=== PATIENT | male | born 1970 | race Caucasian/White ===

== ENCOUNTER 2018-03-30 09:43 | Emergency (ER) | payer MEDICAID, SELFPAY ==
[2018-03-30 10:02] VITALS: BP 168/103; PULSE 76; RESP 20; TEMP 36.2
--- NOTE | 2018-03-30 10:23 | W.ED.GENAD ---
Discharge Plan Disposition Patient Disposition: HOME Discharge Details Chief Complaint: DentalOral Clinical Impression: Dental infection Primary Care Provider: Mayito Sherman ED Provider: Terry Fernandez Home Meds and New Rx's Prescriptions: New penicillin V potassium 500 mg tablet 500 mg PO QID Qty: 28 RF: 0 Continued buprenorphine-naloxone 1 EACH tablet, sublingual 16 mg Sublingual DAILY RF: 0 ibuprofen 800 MG tablet 800 mg PO TID PRN PRNQty: 30 RF: 0 dexmethylphenidate [Focalin] 10 mg Tablet 20 mg PO BID RF: 0 Discharge Instructions Instructions: Dental Abscess (ED) Additional Instructions: Please take full course of antibiotic as prescribed. Please follow-up with a dentist as soon as possible. Call for an appointment. See referral list provided. Please follow-up with your primary care physician and return to the ER should you have any worsening or new concerning symptoms. Referrals: Mayito Sherman [Primary Care Provider] - Medical Decision Making 47-year-old male with poor dentition, recent methamphetamine use, here with right lower molar dental pain. No abscess amenable to incision and drainage on palpation or visualization. Plan to treat with penicillin and have him follow-up with dentist. HPI General Mode of arrival: ambulatory. Date/Time Provider Initiated Documentation: 03/30/18 10:04. Limitations to Documentation: no limitations. Information obtained by: patient. HPI Narrative: 47-year-old male with poor dentition here with right lower molar dental pain that started 2 days ago and has persisted. Pain is moderate. Feels like he has a dental infection which has had in the past. Denies associated facial swelling. No fevers. Related Data Home Medications Medication Instructions Recorded Confirmed buprenorphine-naloxone 16 mg SUBLINGUAL DAILY 10/22/14 03/30/18 ibuprofen 800 mg PO TID PRN PRN #30 tablet 11/24/16 03/30/18 dexmethylphenidate [Focalin] 20 mg PO BID 03/30/18 03/30/18 penicillin V potassium 500 mg PO QID #28 tab 03/30/18 Previous Rx's Medication Instructions Recorded ibuprofen 800 mg PO TID PRN PRN #30 tablet 11/24/16 penicillin V potassium 500 mg PO QID #28 tab 03/30/18 Allergies Allergy/AdvReac Type Severity Reaction Status Date / Time amphetamine aspartate Allergy Mild Skin Rash Unverified 03/30/18 10:05 [From Adderall] amphetamine sulfate Allergy Mild Skin Rash Unverified 03/30/18 10:05 [From Adderall] dextroamphetamine saccharate Allergy Mild Skin Rash Unverified 03/30/18 10:05 [From Adderall] dextroamphetamine sulfate Allergy Mild Skin Rash Unverified 03/30/18 10:05 [From Adderall] methylphenidate HCl Allergy Mild Skin Rash Unverified 03/30/18 10:05 [From Ritalin] Serotonin 5HT-3 Antagonists AdvReac Headache Unverified 03/30/18 10:05 General Stated Complaint: DentalOral DIANA: 4 Review of Systems Constitutional Denies fever(s) and Denies headache(s) ENT Reports as per HPI, Reports dental pain, Denies headache(s), Denies neck pain, Denies sinus pain, Denies sinus pressure and Denies sore throat Musculoskeletal Denies neck pain Neurologic Denies headache(s) PFSH Social History Smoking/Tobacco Use Status: Current every day Exam Const General: cooperative and no acute distress HENMT Head: normocephalic and atraumatic Face and sinus: normal facial exam and sinuses nontender Mouth: moist mucous membranes Teeth and gingiva: caries, poor dentition and other (Tender right molar and adjacent gumline with no fluctuance or's) Throat: posterior oropharynx normal, tonsils normal and uvula midline Eyes Conjunctivae: normal conjunctivae Sclera: normal sclerae EOM: EOM intact bilaterally Neck Neck: no lymphadenopathy, trachea midline and supple Resp Auscultation: clear to auscultation bilaterally, no rales, no rhonchi and no wheezes Cardio Jugular venous pressure: no JVD Rate: regular rate and not tachycardic Rhythm: regular rhythm Skin Rashes: rashes noted (Dry shallow healing ulcerations hand that patient notes is related to prior) Neuro General: alert, awake, oriented x3 and tone normal Psych Mental Status: mental status grossly normal Affect: anxious affect Course Vital Signs Temperature 36.2 C L 03/30/18 10:02 Pulse 76 03/30/18 10:02 Respiratory Rate 20 03/30/18 10:02 Blood Pressure 168/103 H 03/30/18 10:02 Temperature 36.2 C L 03/30/18 10:02 Temperature Source Temporal Artery Scan 03/30/18 10:02 Pulse 76 03/30/18 10:02 Respiratory Rate 20 03/30/18 10:02 Respiratory Effort Non-Labored 03/30/18 10:02 Blood Pressure 168/103 H 03/30/18 10:02 Blood Pressure Position Sitting 03/30/18 10:02 Oxygen Delivery Method Room Air 03/30/18 10:02 Oxygen Flow Rate 0 03/30/18 10:02 Pain Level 3 03/30/18 10:02
--- NOTE | 2018-03-30 10:32 | ED.GENADUL_ITS ---
Discharge Plan Disposition Patient Disposition: HOME Discharge Details Chief Complaint: DentalOral Clinical Impression: Dental infection Primary Care Provider: Mayito Sherman ED Provider: Terry Fernandez Home Meds and New Rx's Prescriptions: New penicillin V potassium 500 mg tablet 500 mg PO QID Qty: 28 RF: 0 Continued buprenorphine-naloxone 1 EACH tablet, sublingual 16 mg Sublingual DAILY RF: 0 ibuprofen 800 MG tablet 800 mg PO TID PRN PRNQty: 30 RF: 0 dexmethylphenidate [Focalin] 10 mg Tablet 20 mg PO BID RF: 0 Discharge Instructions Instructions: Dental Abscess (ED) Additional Instructions: Please take full course of antibiotic as prescribed. Please follow-up with a dentist as soon as possible. Call for an appointment. See referral list provided. Please follow-up with your primary care physician and return to the ER should you have any worsening or new concerning symptoms. Referrals: Mayito Sherman [Primary Care Provider] - Medical Decision Making 47-year-old male with poor dentition, recent methamphetamine use, here with right lower molar dental pain. No abscess amenable to incision and drainage on palpation or visualization. Plan to treat with penicillin and have him follow- up with dentist. HPI General Mode of arrival: ambulatory . Date/Time Provider Initiated Documentation: 03/30/18 10:04 . Limitations to Documentation: no limitations . Information obtained by: patient . HPI Narrative: 47-year-old male with poor dentition here with right lower molar dental pain that started 2 days ago and has persisted. Pain is moderate. Feels like he has a dental infection which has had in the past. Denies associated facial swelling. No fevers. Related Data Home Medications Medication Instructions Recorded Confirmed buprenorphine-naloxone 16 mg SUBLINGUAL DAILY 10/22/14 03/30/18 ibuprofen 800 mg PO TID PRN PRN #30 tablet 11/24/16 03/30/18 dexmethylphenidate [Focalin] 20 mg PO BID 03/30/18 03/30/18 penicillin V potassium 500 mg PO QID #28 tab 03/30/18 Previous Rx's Medication Instructions Recorded ibuprofen 800 mg PO TID PRN PRN #30 tablet 11/24/16 penicillin V potassium 500 mg PO QID #28 tab 03/30/18 Allergies Allergy/AdvReac Type Severity Reaction Status Date / Time amphetamine aspartate Allergy Mild Skin Rash Unverified 03/30/18 10:05 [From Adderall] amphetamine sulfate Allergy Mild Skin Rash Unverified 03/30/18 10:05 [From Adderall] dextroamphetamine saccharate Allergy Mild Skin Rash Unverified 03/30/18 10:05 [From Adderall] dextroamphetamine sulfate Allergy Mild Skin Rash Unverified 03/30/18 10:05 [From Adderall] methylphenidate HCl Allergy Mild Skin Rash Unverified 03/30/18 10:05 [From Ritalin] Serotonin 5HT-3 Antagonists AdvReac Headache Unverified 03/30/18 10:05 General Stated Complaint: DentalOral DIANA: 4 Review of Systems Constitutional Denies fever(s) and Denies headache(s) ENT Reports as per HPI, Reports dental pain, Denies headache(s), Denies neck pain, Denies sinus pain, Denies sinus pressure and Denies sore throat Musculoskeletal Denies neck pain Neurologic Denies headache(s) PFSH Social History Smoking/Tobacco Use Status: Current every day Exam Const General: cooperative and no acute distress HENMT Head: normocephalic and atraumatic Face and sinus: normal facial exam and sinuses nontender Mouth: moist mucous membranes Teeth and gingiva: caries, poor dentition and other (Tender right molar and adjacent gumline with no fluctuance or's) Throat: posterior oropharynx normal, tonsils normal and uvula midline Eyes Conjunctivae: normal conjunctivae Sclera: normal sclerae EOM: EOM intact bilaterally Neck Neck: no lymphadenopathy, trachea midline and supple Resp Auscultation: clear to auscultation bilaterally, no rales, no rhonchi and no wheezes Cardio Jugular venous pressure: no JVD Rate: regular rate and not tachycardic Rhythm: regular rhythm Skin Rashes: rashes noted (Dry shallow healing ulcerations hand that patient notes is related to prior) Neuro General: alert, awake, oriented x3 and tone normal Psych Mental Status: mental status grossly normal Affect: anxious affect Course Vital Signs Temperature 36.2 C L 03/30/18 10:02 Pulse 76 03/30/18 10:02 Respiratory Rate 20 03/30/18 10:02 Blood Pressure 168/103 H 03/30/18 10:02 Temperature 36.2 C L 03/30/18 10:02 Temperature Source Temporal Artery Scan 03/30/18 10:02 Pulse 76 03/30/18 10:02 Respiratory Rate 20 03/30/18 10:02 Respiratory Effort Non-Labored 03/30/18 10:02 Blood Pressure 168/103 H 03/30/18 10:02 Blood Pressure Position Sitting 03/30/18 10:02 Oxygen Delivery Method Room Air 03/30/18 10:02 Oxygen Flow Rate 0 03/30/18 10:02 Pain Level 3 03/30/18 10:02
[2018-03-30 13:38] VITALS: BP 168/103; PULSE 76; RESP 20; TEMP 36.2
== END 2018-03-30 10:45 | disposition home or self-care (01) ==
PROVIDERS: Emergency Provider Student in an Organized Health Care Education/Training Program; PCP Internal Medicine Sleep Medicine
DX: R68.84 Jaw pain (principal); K04.7 Periapical abscess without sinus; F15.99 Other stimulant use, unspecified with unspecified stimulant-induced disorder
CPT/HCPCS: 99283

== ENCOUNTER 2018-09-16 08:22 | Emergency (ER) | payer MEDICAID, SELFPAY ==
[2018-09-16] VITALS (39 sets, daily range): BP systolic 101–152; BP diastolic 61–97; PULSE 73–95; RESP 8–19; TEMP 36.5; O2SAT 96–100
--- NOTE | 2018-09-16 08:39 | W.ED.GENAD ---
Discharge Plan Disposition Patient Disposition: [facility] Condition: Critical Discharge Details Chief Complaint: Nausea/Vomit/Diar Clinical Impression: Obstructive nephropathy, Acute renal failure Primary Care Provider: Mayito Sherman ED Provider: Hayden Hoffman Home Meds and New Rx's Prescriptions: No Action buprenorphine-naloxone 1 EACH tablet, sublingual 16 mg Sublingual DAILY RF: 0 Medical Decision Making Patient presenting to the emergency department for chief complaint of abdominal pain, nausea vomiting diarrhea. He states that this is been going on for the past couple weeks and that he is just not feeling better. He does also report some difficulty urinating but states he has ongoing prostate issues and stopped his Flomax about 1 month ago due to it making him not feel well. Patient states subjective fever and chills and otherwise vague body aches, chest discomfort, generalized malaise. Patient does state he has been losing weight over the past 6 months and does not attributed to increased activity or exercise. Physical exam shows normal cardiac and respiratory exam, guarded abdomen with mostly tender over the suprapubic, no CVA tenderness, otherwise unremarkable exam. Plan to do labs, establish IV access, and give fluids. Patient also have bladder scan due to him stating some difficulty urinating. icu staff nurse informed me of greater than 1000 mL's in his bladder. Discussed with patient catheterization which he agreed to. Lab informed me of critical results that showed hyperkalemia, hyponatremia, critical creatinine and BUN with a GFR of 3.3. 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 Plan to give insulin, dextrose, calcium, orders for ketorolac and IV fluid bolus were stopped but maintenance fluid was ordered. Given also elevated anion gap ABG was ordered for further evaluation of acidosis per. EKG was ordered icu staff nurse unable to place catheter. Patient anxious about secondary catheter so lidocaine gel was ordered and inform patient of critical results and need of catheter. Patient give a little Ativan to help with anxiety. I was able to insert a 20 Pashto coud? catheter and we drained 1000 mL's within 3 minutes and clamped the tubing to prevent any severe fluid shift. Requesting consult with nephrology at [facility] for consideration of transfer due to obstructive nephropathy. Spoke with urology Dr. Butt at [facility] who recommended leaving catheter open, continuing to manage electrolytes, and admitting but at this time did not see need for emergent transfer to [facility] or for dialysis. Did discuss patient's urinary findings that are suggestive of also a UTI with positive nitrites, large amount leukocyte esterase, greater than 50 WBCs. She stated standard IV meds for UTI as appropriate. Patient placed on Cefzolinl and called hospitalist for admission. Spoke with Dr. Shaffer he who was concerned about our inability to dialyze patient if he worsens so requested transfer to a different facility. Page at [facility] nephrology for further consult. Spoke with Dr. Jefferson at [facility] whom after review of case recommended isotonic D5 with 3 Amp of bicarb at a rate of 150 and transferred to their facility. Patient was in agreement with this. Patient had total of 1600 mL's of urine output in the emergency department. Lab Data Lab results reviewed: Yes I reviewed the patient's lab results. ECG Data Attestation: I personally reviewed and interpreted this ECG (s) as follows: Interpretation: EKG reviewed with attending physician Dr. Peng and shows diffuse peak T waves, otherwise sinus rhythm with rate 87, no bradycardia, no widened QRS, no noted ischemic changes. HPI General Mode of arrival: ambulatory. Date/Time Provider Initiated Documentation: 09/16/18 08:24. Limitations to Documentation: no limitations. Information obtained by: patient and RN notes reviewed. History of Present Illness 47 year old M presents to the emergency department with the chief complaint of Nausea vomiting diarrhea, described as moderate, with intensity rated at 8. Quality is described as aching (All over body aches), Patient started experiencing this week(s) (2) and it has been constant. No relieving factors improve symptom(s), No exacerbating factors reported . Related Data Home Medications Medication Instructions Recorded Confirmed buprenorphine-naloxone 16 mg SUBLINGUAL DAILY 10/22/14 09/16/18 Allergies Allergy/AdvReac Type Severity Reaction Status Date / Time amphetamine aspartate Allergy Mild Skin Rash Unverified 09/16/18 12:34 [From Adderall] amphetamine sulfate Allergy Mild Skin Rash Unverified 09/16/18 12:34 [From Adderall] dextroamphetamine saccharate Allergy Mild Skin Rash Unverified 09/16/18 12:34 [From Adderall] dextroamphetamine sulfate Allergy Mild Skin Rash Unverified 09/16/18 12:34 [From Adderall] methylphenidate HCl Allergy Mild Skin Rash Unverified 09/16/18 12:34 [From Ritalin] Serotonin 5HT-3 Antagonists AdvReac Headache Unverified 09/16/18 12:34 General Stated Complaint: Nausea/Vomit/Diar DIANA: 3 Review of Systems Constitutional Reports chills, Denies fever(s), Reports poor appetite and Reports weight loss Cardiovascular Reports chest pain Respiratory Denies cough and Reports pain on inspiration (reports abd pain) Gastrointestinal Reports as per HPI, Reports abdominal pain, Denies melena, Denies change in bowel habits, Denies constipation, Denies diarrhea, Reports nausea and Reports vomiting Genitourinary Denies hematuria, Reports difficulty urinating, Denies penile discharge, Denies testicular pain, Denies urinary hesitancy, Denies urinary incontinence and Denies urinary urgency Integumentary/Breasts Denies rash [facility] Social History Smoking/Tobacco Use Status: Current every day Tobacco Type: cigarettes Alcohol Intake: never Drug use: Binges Substance use type: does not use Do you feel safe at home: Yes Do you feel safe in your relationship?: Yes Exam Const General: cooperative Orientation: alert, awake and oriented x3 Resp Effort & Inspection: normal respiratory effort and able to speak in complete sentences Auscultation: clear to auscultation bilaterally Cardio Rate: regular rate Rhythm: regular rhythm Heart Sounds: S1 normal and S2 normal GI Inspection: normal to inspection Palpation: soft, no hepatosplenomegaly, not firm, guarding in the LLQ and in the RLQ, no masses, no pulsatile masses, not rigid, no splenomegaly and tender suprapubicly and other (mild difuse); not at McBurney's point and Fish's sign negative Auscultation: normal bowel sounds Back/Spine/Pelvis Back: no CVA tenderness Neuro General: alert, awake, oriented x3, gait normal and moves all extremities Course Vital Signs Temperature 36.5 C 09/16/18 08:30 Pulse 94 H 09/16/18 08:30 Respiratory Rate 16 09/16/18 08:30 Blood Pressure 152/84 H 09/16/18 08:30 Pulse Oximetry 96 09/16/18 08:30 Temperature 36.5 C 09/16/18 08:30 Temperature Source Temporal Artery Scan 09/16/18 08:30 Pulse 94 H 09/16/18 08:30 Respiratory Rate 16 09/16/18 08:30 Respiratory Effort 09/16/18 08:30 Blood Pressure 152/84 H 09/16/18 08:30 Blood Pressure Position Sitting 09/16/18 08:30 Pulse Oximetry 96 09/16/18 08:30 Oxygen Delivery Method Room Air 09/16/18 08:30 Oxygen Flow Rate 0 09/16/18 08:30 Critical Care Time Critical Care Time: Yes Total Critical Care Time: 45 Attestation: I spent at least 45 minutes addressing patient's life-threatening critical illness, speaking with patient, discussing case with consults, and stabilizing patient.
[2018-09-16 08:58] LABS: Abs Immature Grans 0.09 k/cumm (0.0-0.09); Absolute Basophil Count 0.04 k/cumm (0.0-0.2); Basophils % 0.3; Eosinophils % 0.8; HCT 25.5 % (40.0-50.0); HGB 8.6 g/dL (13.5-17.5); Immature Grans % 0.7; Lymphocytes % 8.5; Mean Corp. HGB Concentration 33.7 g/dL (32.0-36.0); Mean Corpuscular Hemoglobin 27.7 pg (27.0-33.0); Mean Corpuscular Volume 82.3 fL (80-95); Mean Platelet Volume 8.9 fL (8.0-11.0); Monocytes % 6.8; Neutrophils % 82.9; RBC Distribution Width 14.9 % (11.8-14.1); White Blood Cell Count 12.29 k/cumm (4.4-10.8)
[2018-09-16 09:10] LABS: ALT 8 U/L (12-78); Albumin 2.9 g/dL (3.4-5.0); Alkaline Phosphatase 112 U/L (46-116); Bilirubin, Total 0.3 mg/dL (0.2-1.0); Calcium 8.6 mg/dL (8.5-10.1); Chloride 92 mmol/L (98-107); Estimated GFR 3.38 (mL/min/1.73m2); Glucose 125 mg/dL (70-100); Lipase 248 U/L (73-393); Magnesium 2.6 mg/dL (1.8-2.4); Sodium 127 mmol/L (136-145); Total Protein 9.1 g/dL (6.4-8.2)
[2018-09-16 09:16] LABS: BUN 179 mg/dL (7-18)
[2018-09-16 09:17] LABS: AST < 5 U/L (15-37)
[2018-09-16] MEDS: Insulin REGULAR-Human 100 UNITS/ML UNIT 10 UNITS IV (09:48)
[2018-09-16 09:52] LABS: HCO3 10 mmol/L (22-28); pCO2 25 mmHg (34-47); pO2 98 mmHg (83-108); sO2 97 % (94-98); tCO2 9 mmol/L (22-29)
[2018-09-16 09:53] LABS: TSH (W/Ref FT4) 1.22 uIU/mL (0.36-3.74)
[2018-09-16 09:54] LABS: Site Right Radial; pH 7.19 (7.35-7.45)
[2018-09-16] MEDS: Dextrose 50%-Water 25 GM/50 ML SYR IVP (09:54)
[2018-09-16 09:55] LABS: Absolute Lymphocyte Count 1.04 k/cumm (1.2-3.4); Absolute Monocyte Count 0.84 k/cumm (0.11-0.7); Absolute Neutrophil Count 10.19 k/cumm (1.2-6.7)
[2018-09-16] MEDS: Lidocaine 2% Jelly 11 ML SYR UR (09:55)
[2018-09-16] MEDS: Calcium Gluconate 4.65 MEQ/10 ML VIAL 4.65 MG IVP (09:56)
[2018-09-16 09:57] LABS: Diff Comment Diff Reviewed
[2018-09-16 09:58] LABS: Hypochromasia 2+; Poikilocytes 1+
[2018-09-16 09:59] LABS: Platelet Count 554 x1000/uL (130-400)
[2018-09-16] MEDS: LORazepam 2 MG/ML VIAL 1 MG IVP (10:09)
[2018-09-16 10:21] LABS: Bilirubin Negative (Negative); Blood Moderate (Negative); Clarity Sl Cloudy (Clear); Glucose Negative (Negative); Ketones Negative (Negative); Leukocyte Esterase Large (Negative); Nitrite Positive (Negative); Urobilinogen 0.2 EU/dL (Up TO 0.2)
[2018-09-16 10:30] LABS: Bacteria Few HPF (Negative); WBC >50 HPF (0-5)
[2018-09-16 10:31] LABS: C & S Indicated? Yes
[2018-09-16] MEDS: Normal Saline 1,000 ML 75 ML IV (10:36)
--- NOTE | 2018-09-16 10:37 | NUR.NOTE ---
Nursing Note: BGL 151, DEVAN Zelaya made aware.
[2018-09-16 11:26] LABS: Anion Gap 21.1 mmol/L (3-11); CO2 12.9 mmol/L (21.0-32.0); Chloride 94 mmol/L (98-107); Glucose 44 mg/dL (70-100); Sodium 128 mmol/L (136-145)
[2018-09-16 11:28] LABS: BUN 175 mg/dL (7-18)
[2018-09-16 11:29] LABS: CREATININE 15.91 mg/dL (0.70-1.30)
[2018-09-16 11:30] LABS: Potassium 7.1 mmol/L (3.5-5.1)
--- NOTE | 2018-09-16 11:32 | DI.US_ITS ---
SYMPTOMS/DIAGNOSIS: URINARY RETENTION RENAL ULTRASOUND: There are no prior comparison exams. There is mild dilatation of the right renal pelvis. There is moderate dilatation of the right renal pelvis. No stones are identified. A Peña catheter is present in the bladder which was not distended. The bladder is not well evaluated. There is a question of mildly increased renal parenchymal echogenicity which could indicate medical renal disease. There are no perinephritic collections. No focal isabell of decreased perfusion is seen. IMPRESSION: Mild right hydronephrosis. Moderate left hydronephrosis.
[2018-09-16] MEDS: SODIUM BICARBONATE 150 MEQ in DEXTROSE 5%-WATER 1,000 ML IV (13:07)
[2018-09-16] MEDS: DEXTROSE 5%-WATER 1,000 ML 150 ML IV (13:08)
--- NOTE | 2018-09-16 13:09 | NUR.NOTE ---
Nursing Note: Current BGL 114
--- NOTE | 2018-09-16 13:24 | NUR.NOTE ---
Nursing Note: PT report transferred to Luciana at [facility] at 1324.
== END 2018-09-16 13:17 ==
PROVIDERS: Emergency Provider Nurse Practitioner Family; PCP Internal Medicine Sleep Medicine
DX: N13.8 Other obstructive and reflux uropathy (principal); N17.9 Acute kidney failure, unspecified; E87.5 Hyperkalemia; E87.1 Hypo-osmolality and hyponatremia
CPT/HCPCS: 36415; 51703; 76770; 80048; 80053; 82805; 83690; 87077; 93005; 96361; 96365; 96375; 96376; 99285; 36600; 81003; 81015; 83735; 84443; 85025; 87086; 87186; 93010; 99284; J0610; J0690; J2060; J7060

== ENCOUNTER 2018-12-18 00:11 | Emergency (ER) | payer MEDICAID, SELFPAY ==
[2018-12-18 00:25] VITALS: BP 128/88; PULSE 74; RESP 20; TEMP 36.6; O2SAT 97
[2018-12-18] MEDS: Lidocaine 2% Jelly 6 ML SYR (00:34)
--- NOTE | 2018-12-18 00:36 | W.ED.GENAD ---
Discharge Plan Disposition Patient Disposition: HOME Condition: Good Discharge Details Chief Complaint: Urinary Clinical Impression: Acute urinary retention, Complication of Peña catheter Primary Care Provider: Marianela Del Rosario ED Provider: Kishore Ring Home Meds and New Rx's Prescriptions: No Action buprenorphine-naloxone 1 EACH tablet, sublingual 16 mg Sublingual DAILY RF: 0 gabapentin 400 mg Capsule 400 mg PO BID RF: 0 dexmethylphenidate [Focalin XR] 40 mg Capsule,Er Biphasic 50-50 40 mg PO DAILY RF: 0 Discharge Instructions Instructions: Urinary Retention in Men (ED) Additional Instructions: Unfortunately it appears that you still need your Peña catheter. Please keep the Peña catheter leg bag on at all times. Please follow-up closely with your urologist Dr. Burris. If you notice any worsening of your symptoms, or any new symptoms such as vomiting, diarrhea, fever, chills, shortness of breath, chest pain, numbness, weakness, or fainting , please return immediately to the emergency department for reevaluation. Please follow up with your primary care provider as soon as possible for reassessment and reevaluation. As always, it was a pleasure participating in your medical care today. 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 He presents today for urinary retention. Today while he was at his urologist office, Dr. Burris, he requested that they hold off on putting the new Peña in to see if he could urinate on his own. Unfortunately throughout the day he was unable to urinate at all, they came in for Peña placement. He denies any symptoms of fever chills or flank pain. Prior to Peña placement he demonstrated 800 mL's of urine in his bladder. After Peña catheter was placed he had complete resolution of the symptoms. Urine is unremarkable in appearance. He has no clinical symptoms of UTI or pyelonephritis. With complete resolution of his symptomatology after Peña placement no evidence of blood, urine discoloration or other abnormality I feel that he can be safely discharged home with close follow-up with his urologist. Peña catheter was placed without difficulty, it drained his urine well, and he shows no signs of profound or continue diuresis. He will be discharged with a leg bag and follow-up. I have extensively reviewed the treatment plan and discharge instructions with the patient. I have addressed all patient concerns at this time. The patient was made aware of what symptoms to monitor for that would warrant a return to the emergency department. Discussed the plan with the patient, they demonstrate verbal understanding and agreement with our assessment and plan at this time. HPI General Date/Time Provider Initiated Documentation: 12/18/18 00:29. HPI Narrative: This is a 48-year-old male with a past medical history of previous prostate hypertrophy, subsequent kidney damage leading to chronic catheterization. He regularly has a Peña in and sees Dr. Burris in [place]. He was at Dr. Burris's office today, where they were going to change his chronic indwelling Peña catheter, however he stated that he would like to have a trial to see if he could urinate on his own. They did not place a new Peña because of this. Unfortunately since he was discharged he has not had any urination is been unable to urinate at all. He admits to suprapubic pressure, but denies any other complaints. He has no complaints of fever, chills, abdominal pain, vomiting, diarrhea, change in urine color or consistency, dysuria or hematuria. No other complaints at this time. No other modifying factors. Related Data Home Medications Medication Instructions Recorded Confirmed buprenorphine-naloxone 16 mg SUBLINGUAL DAILY 10/22/14 12/18/18 dexmethylphenidate [Focalin XR] 40 mg PO DAILY 12/18/18 12/18/18 gabapentin 400 mg PO BID 12/18/18 12/18/18 Allergies Allergy/AdvReac Type Severity Reaction Status Date / Time amphetamine aspartate Allergy Mild Skin Rash Unverified 12/18/18 00:29 [From Adderall] amphetamine sulfate Allergy Mild Skin Rash Unverified 12/18/18 00:29 [From Adderall] dextroamphetamine saccharate Allergy Mild Skin Rash Unverified 12/18/18 00:29 [From Adderall] dextroamphetamine sulfate Allergy Mild Skin Rash Unverified 12/18/18 00:29 [From Adderall] methylphenidate HCl Allergy Mild Skin Rash Unverified 12/18/18 00:29 [From Ritalin] Serotonin 5HT-3 Antagonists AdvReac Headache Unverified 12/18/18 00:29 General Stated Complaint: Urinary DIANA: 4 Review of Systems All systems reviewed & are unremarkable except as noted in HPI and below PFSH Social History Smoking/Tobacco Use Status: Current every day Tobacco Type: cigarettes Alcohol Intake: never Drug use: Binges Substance use type: does not use Do you feel safe at home: Yes Do you feel safe in your relationship?: Yes Exam Narrative Exam Narrative: 1.Const: Well-nourished, Well-developed, appearing stated age 2.Eyes: PERRL, no conjunctival injection, and symmetrical lids. 3.ENT: Atraumatic external nose and ears. Moist MM. Neck: Symmetric, trachea midline, No thyromegaly. 4.CVS: +S1/S2, No murmurs or gallops. Peripheral pulses 2+ and equal in all extremities. Brisk capillary refill in all extremities. 5.RESP: Unlabored respiratory effort. Clear to auscultation bilaterally. No wheezes rales or rhonchi 6.GI: Soft,Nondistended, No hepatosplenomegaly. No guarding or rebound. Exam prior to Peña catheter demonstrated suprapubic pressure and a palpable bladder, exam after Peña catheter demonstrates a notably collapsed bladder code of no food or tenderness whatsoever. Genital exam demonstrates normal male genitalia, nontender testicles, normal penile exam, no evidence of blood at the urethral meatus, no penile tenderness. 7.MSK: Normocephalic/Atraumatic, Extremities w/o deformity or ttp No cyanosis or clubbing, Normal movement of all extremities 8.Skin: Warm, Dry. No rashes or lesions. 9.Neuro: corrugated sheet material sheeter II-XII grossly intact. Sensation grossly intact, no focal neurologic deficits. 10.Psych: (AAO) x3. Appropriate mood and affect Course Vital Signs Vital signs: Vital Signs Temperature 36.6 C 12/18/18 00:25 Pulse 74 12/18/18 00:25 Respiratory Rate 20 12/18/18 00:25 Blood Pressure 128/88 12/18/18 00:25 Pulse Oximetry 97 12/18/18 00:25 Temperature 36.6 C 12/18/18 00:25 Temperature Source Tympanic 12/18/18 00:25 Pulse 74 12/18/18 00:25 Respiratory Rate 20 12/18/18 00:25 Respiratory Effort 12/18/18 00:32 Blood Pressure 128/88 12/18/18 00:25 Blood Pressure Position Supine 12/18/18 00:25 Pulse Oximetry 97 12/18/18 00:25 Oxygen Delivery Method Room Air 12/18/18 00:25 Oxygen Flow Rate 0 12/18/18 00:25 Pain Level 0 12/18/18 00:32
== END 2018-12-18 00:45 | disposition home or self-care (01) ==
PROVIDERS: Emergency Provider Student in an Organized Health Care Education/Training Program; PCP Nurse Practitioner Family
DX: R33.8 Other retention of urine (principal); T83.098A Other mechanical complication of other urinary catheter, initial encounter; Z96.0 Presence of urogenital implants
CPT/HCPCS: 51702; 99284

== ENCOUNTER 2019-02-23 09:17 | Emergency (ER) | payer MEDICAID, SELFPAY ==
[2019-02-23 09:23] VITALS: BP 144/89; PULSE 83; RESP 18; TEMP 37.2; O2SAT 99
[2019-02-23] MEDS: Lidocaine 2% Jelly 6 ML SYR (09:53)
--- NOTE | 2019-02-23 09:56 | W.ED.GENAD ---
Discharge Plan Disposition Patient Disposition: HOME Condition: Stable Discharge Details Chief Complaint: Urinary Clinical Impression: Encounter for Berry catheter replacement Primary Care Provider: Marianela Del Rosario ED Provider: Helga Matt Home Meds and New Rx's Prescriptions: Continued buprenorphine-naloxone 1 EACH tablet, sublingual 16 mg Sublingual DAILY RF: 0 dextroamphetamine-amphetamine [Adderall XR] 30 mg Capsule,Extended Release 24hr 30 mg PO BID RF: 0 gabapentin 400 mg Capsule 600 mg PO TID RF: 0 Discharge Instructions Instructions: Berry Catheter Placement and Care (ED) Additional Instructions: Call your urologist Dr. Burris tomorrow to schedule a follow-up appointment for reevaluation and continued management of your Berry catheter. Return to the emergency department with any worsening or new concerning symptoms such as fever or pain. Discharge Data Discharge Physician: Helga Matt Medical Decision Making 48-year-old male with a history of chronic Berry since August 2018 due to BPH presents for Berry catheter change. Patient states he is followed by urologist Dr. Ashley Burris at [facility] and states he last saw her a few months ago in the office. He states he is supposed to have the Berry catheter changed once monthly but has not had a change for 3 months. He denies any fever, abdominal pain, hematuria, back pain. He states he has not been able to follow-up with Dr. Burris due to lack of transportation. Berry catheter changed here by nurse in ED. Urine in bag appears dark yellow but not cloudy and without pus. He appears nontoxic. Urinalysis notes 20-50 RBCs and greater than 50 WBCs. Urine culture sent. Suspect colonization so we will hold on antibiotics at this time as patient does not clinically appear to have a UTI. Patient is agreeable with plan. He is advised to call Dr. Burris's office tomorrow to schedule a follow-up appointment for reevaluation and to return here with any concerns. Medical Records Medical records reviewed: Yes I reviewed the patient's medical records. Lab Data Lab results reviewed: Yes I reviewed the patient's lab results. Labs: 02/23/19 10:15 Urine - Cath Berry Indwelling Urine Culture - Pending Laboratory Tests Range/Units 02/23/19 10:15 Urine Color (Yellow) Yellow Urine Clarity (Clear) Sl cloudy Urine pH (5-8) 7.0 Ur Specific [place] (1.005-1.025) 1.020 Urine Protein (Negative) mg/dL 100 H Urine Ketones (Negative) mg/dL Negative Urine Blood (Negative) Moderate H Urine Nitrite (Negative) Negative Urine Bilirubin (Negative) Negative Urine Urobilinogen (Up TO 0.2) EU/dL 0.2 Ur Leukocyte Esterase (Negative) Small H Urine RBC (0-2) HPF 20-50 H Urine WBC (0-5) HPF >50 H Ur Epithelial Cells (Negative) HPF Few Urine Crystals (Negative) HPF Negative Urine Bacteria (Negative) HPF Few Urine Casts (Negative) LPF 5-10 wbc Urine Mucus (Negative) Heavy Urine Other (Negative) Moderate renal Ur Culture Indicated? C&s done as ordered Urine Glucose (Negative) mg/dL Negative HPI General Mode of arrival: ambulatory. Date/Time Provider Initiated Documentation: 02/23/19 09:32. Limitations to Documentation: no limitations. Information obtained by: patient. History of Present Illness 48 year old M presents to the emergency department with the chief complaint of here for berry catheter change, Patient started experiencing this month(s) (last changed 3 months ago ) and it has been constant. No relieving factors improve symptom(s), No exacerbating factors reported . Patient notes denies fever/chills, nausea/vomiting and syncope. Patient did receive the following treatments prior to arrival, none Related Data Home Medications Medication Instructions Recorded Confirmed buprenorphine-naloxone 16 mg SUBLINGUAL DAILY 10/22/14 02/23/19 gabapentin 600 mg PO TID 12/18/18 02/23/19 dextroamphetamine-amphetamine 30 mg PO BID 02/23/19 02/23/19 [Adderall XR] Allergies Allergy/AdvReac Type Severity Reaction Status Date / Time amphetamine aspartate Allergy Mild Skin Rash Unverified 02/23/19 09:28 [From Adderall] amphetamine sulfate Allergy Mild Skin Rash Unverified 02/23/19 09:28 [From Adderall] dextroamphetamine saccharate Allergy Mild Skin Rash Unverified 02/23/19 09:28 [From Adderall] dextroamphetamine sulfate Allergy Mild Skin Rash Unverified 02/23/19 09:28 [From Adderall] methylphenidate HCl Allergy Mild Skin Rash Unverified 01/01/20 09:28 [From Ritalin] Serotonin 5HT-3 Antagonists AdvReac Headache Unverified 02/23/19 09:28 General Stated Complaint: Urinary DIANA: 3 Review of Systems All systems reviewed & are unremarkable except as noted in HPI and below Constitutional Constitutional: Reports as per HPI, Denies chills and Denies fever(s) Eyes Eyes: Denies blurry vision ENT Ears, Nose, Mouth, and Throat: Denies dizziness, Denies sore throat and Denies throat swelling Cardiovascular Cardiovascular: Denies chest pain and Denies dyspnea Respiratory Respiratory: Denies cough and Denies dyspnea Gastrointestinal Gastrointestinal: Denies abdominal pain, Denies diarrhea and Denies vomiting Genitourinary Genitourinary: Denies hematuria and Denies dysuria Musculoskeletal Musculoskeletal: Denies back pain and Denies numbness Integumentary/Breasts Skin/Breast: Denies lesions and Denies rash Neurologic Neurologic: Denies dizziness, Denies focal weakness and Denies numbness Allergic/Immunologic Allergic/Immunologic: Denies throat swelling [facility] Medical History ADHD (Acute) Bipolar affective disorder (Acute) Depression (Chronic) 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) Surgical History History of hernia repair (Chronic) Social History Smoking/Tobacco Use Status: Current every day Tobacco Type: cigarettes Alcohol Intake: never Drug use: Binges Substance use type: does not use Do you feel safe at home: Yes Do you feel safe in your relationship?: Yes Exam Const General: cooperative, healthy appearing and no acute distress [facility] Head: normal to inspection Face and sinus: normal facial exam Eyes General: appearance normal, both eyes and all related structures EOM: EOM intact bilaterally Neck Neck: normal visual inspection and No submandibular swelling Lymphatic: no lymphadenopathy noted Chest Chest: normal inspection of the chest and no tenderness Resp Effort & Inspection: normal respiratory effort and able to speak in complete sentences Auscultation: clear to auscultation bilaterally Cardio Rate: regular rate Rhythm: regular rhythm GI Inspection: normal to inspection Palpation: soft, not firm, not rigid and nontender Auscultation: normal bowel sounds Male General Exam: Yes normal external exam and Yes other (berry catheter in place with dark yellow urine in bag) Penis: normal penis Scrotum: scrotum normal Testes: no testicular mass, no testicular swelling and no testicular tenderness Back/Spine/Pelvis Thoracic/Lumbar Spine: thoracic and lumbar spine normal to inspection Pelvis: no pain with anterior-posterior compression Skin General skin exam: no rashes or lesions noted Neuro General: alert, awake and oriented x3 Cognition: normal cognition Speech: speech normal Motor: muscle tone normal throughout Sensory Exam: no sensory deficits noted Extrem General: normal to inspection, full ROM, normal capillary refill, no calf tenderness bilaterally and no edema Psych Appearance: grossly normal Mental Status: mental status grossly normal Speech and Movement: speech and movement normal Affect: normal affect Course Vital Signs Vital signs: Vital Signs Temperature 99.0 F 02/23/19 09:23 Pulse 83 02/23/19 09:23 Respiratory Rate 18 02/23/19 09:23 Blood Pressure 144/89 H 02/23/19 09:23 Pulse Oximetry 99 02/23/19 09:23 Temperature 99.0 F 02/23/19 09:23 Temperature Source Temporal Artery Scan 02/23/19 09:23 Pulse 83 02/23/19 09:23 Respiratory Rate 18 02/23/19 09:23 Respiratory Effort Non-Labored 02/23/19 09:26 Blood Pressure 144/89 H 02/23/19 09:23 Blood Pressure Position Sitting 02/23/19 09:23 Pulse Oximetry 99 02/23/19 09:23 Oxygen Delivery Method Room Air 02/23/19 09:23 Oxygen Flow Rate 0 02/23/19 09:23 Pain Level 0 02/23/19 09:23 Lab/Test Results Lab/Test Results: 02/23/19 09:49 Urine - Cath Berry Indwelling Urine Culture - Pending
[2019-02-23 10:30] LABS: Bilirubin Negative (Negative); Blood Moderate (Negative); Clarity Sl Cloudy (Clear); Glucose Negative (Negative); Ketones Negative (Negative); Leukocyte Esterase Small (Negative); Nitrite Negative (Negative); Urobilinogen 0.2 EU/dL (Up TO 0.2)
[2019-02-23 10:44] LABS: Bacteria Few HPF (Negative); Crystals Negative HPF (Negative); Epithelial Cells Few HPF (Negative); Mucus Heavy (Negative); Other Cells Moderate Renal (Negative); RBC 20-50 HPF (0-2); WBC >50 HPF (0-5)
[2019-02-23 10:45] LABS: C & S Indicated? C&S Done As Ordered
== END 2019-02-23 10:55 | disposition home or self-care (01) ==
PROVIDERS: Emergency Provider Physician Assistant; PCP Nurse Practitioner Family
DX: Z46.6 Encounter for fitting and adjustment of urinary device (principal)
CPT/HCPCS: 51702; 99283; 81003; 81015; 87086

== ENCOUNTER 2019-05-21 06:52 | Emergency (ER) | payer MEDICAID, SELFPAY ==
[2019-05-21 06:58] VITALS: BP 133/78; PULSE 77; RESP 18; TEMP 37.1; O2SAT 98
--- NOTE | 2019-05-21 07:06 | ED.GENADUL_ITS ---
Discharge Plan Disposition Patient Disposition: HOME Condition: Stable Discharge Details Chief Complaint: Urinary Clinical Impression: Berry catheter present Primary Care Provider: Marianela Del Rosario ED Provider: Eleazar Chatterjee Home Meds and New Rx's Prescriptions: Continued buprenorphine-naloxone 1 EACH tablet, sublingual 16 mg Sublingual DAILY RF: 0 dextroamphetamine-amphetamine [Adderall XR] 30 mg Capsule,Extended Release 24hr 30 mg PO BID RF: 0 gabapentin 400 mg Capsule 600 mg PO TID RF: 0 Discharge Instructions Instructions: Berry Catheter Placement and Care (ED) Medical Decision Making 48 yo male who has bph with chronic berry who came here today as he needs a new berry cather. He has no symptoms, no pain fevers or vomit. states due to covid19 has had difficulty getting an appointment with urologist in [place]. He is just requesting supplies and wants to change it himself. Supplies provided. He would also like to transition urology care to [facility] for convenience, placed on f/u list to help get him established here [facility] Differential Diagnosis Differential Diagnosis: berry cather change HPI General Mode of arrival: ambulatory . Date/Time Provider Initiated Documentation: 05/21/19 06:52 . Limitations to Documentation: no limitations . Information obtained by: patient . History of Present Illness 48 year old M presents to the emergency department with the chief complaint of needs berry catheter supplies, and it has been constant. Patient notes no other symptoms.. Related Data Home Medications Medication Instructions Recorded Confirmed buprenorphine-naloxone 16 mg SUBLINGUAL DAILY 10/22/14 05/21/19 gabapentin 600 mg PO TID 12/18/18 05/21/19 dextroamphetamine-amphetamine 30 mg PO BID 02/23/19 05/21/19 [Adderall XR] Allergies Allergy/AdvReac Type Severity Reaction Status Date / Time amphetamine aspartate Allergy Mild Skin Rash Unverified 05/21/19 07:06 [From Adderall] amphetamine sulfate Allergy Mild Skin Rash Unverified 05/21/19 07:06 [From Adderall] dextroamphetamine saccharate Allergy Mild Skin Rash Unverified 05/21/19 07:06 [From Adderall] dextroamphetamine sulfate Allergy Mild Skin Rash Unverified 05/21/19 07:06 [From Adderall] methylphenidate HCl Allergy Mild Skin Rash Unverified 05/21/19 07:06 [From Ritalin] Serotonin 5HT-3 Antagonists AdvReac Headache Unverified 05/21/19 07:06 General Stated Complaint: Urinary DIANA: 4 Review of Systems All systems reviewed & are unremarkable except as noted in HPI and below Constitutional Constitutional: Denies chills, Denies fever(s) and Denies weakness Cardiovascular Cardiovascular: Denies chest pain and Denies dyspnea Respiratory Respiratory: Denies cough and Denies dyspnea Gastrointestinal Gastrointestinal: Denies abdominal pain, Denies nausea and Denies vomiting Musculoskeletal Musculoskeletal: Denies joint swelling Neurologic Neurologic: Denies weakness Psychiatric Psychiatric: Denies depression [facility] Social History Smoking/Tobacco Use Status: Current every day Tobacco Type: cigarettes Alcohol Intake: never Drug use: Binges Substance use type: does not use Do you feel safe at home: Yes Do you feel safe in your relationship?: Yes Exam Const General: no acute distress Orientation: alert HENMT Head: normal to inspection Ears: external ears normal General nose exam: external nose normal Mouth: moist mucous membranes Eyes General: appearance normal, both eyes and all related structures Neck Neck: normal visual inspection Resp Effort & Inspection: normal respiratory effort and able to speak in complete sentences Cardio Rate: regular rate Skin General skin exam: no rashes or lesions noted Neuro General: patient alert and patient oriented x3 Extrem General: normal to inspection Psych Mental Status: mental status grossly normal Course Vital Signs Vital signs: Vital Signs Temperature 37.1 C 05/21/19 06:58 Pulse 77 05/21/19 06:58 Respiratory Rate 18 05/21/19 06:58 Blood Pressure 133/78 05/21/19 06:58 Pulse Oximetry 98 05/21/19 06:58 Temperature 37.1 C 05/21/19 06:58 Temperature Source Temporal Artery Scan 05/21/19 06:58 Pulse 77 05/21/19 06:58 Respiratory Rate 18 05/21/19 06:58 Respiratory Effort Non-Labored 05/21/19 07:04 Blood Pressure 133/78 05/21/19 06:58 Blood Pressure Position Sitting 05/21/19 06:58 Pulse Oximetry 98 05/21/19 06:58 Oxygen Delivery Method Room Air 05/21/19 06:58 Oxygen Flow Rate 0 05/21/19 06:58 Pain Level 0 05/21/19 06:58
--- NOTE | 2019-05-21 07:18 | NUR.NOTE ---
referral faxed [facility], Dr. Hooper.Nursing Note:
== END 2019-05-21 07:21 | disposition home or self-care (01) ==
LOC: ER 07:25
PROVIDERS: Emergency Provider Emergency Medicine; PCP Nurse Practitioner Family
DX: N40.0 Benign prostatic hyperplasia without lower urinary tract symptoms (principal); Z96.0 Presence of urogenital implants
CPT/HCPCS: 99281

== ENCOUNTER 2020-07-10 13:41 | Outpatient (REF) | payer MEDICAID, SELFPAY ==
[2020-07-10 09:46] LABS: BUN 18 mg/dL (7-18); CREATININE 2.1 mg/dL (0.70-1.30); Estimated GFR 33.88 (mL/min/1.73m2)
== END 2020-07-10 13:42 | disposition home or self-care (01) ==
LOC: LBN 13:41
PROVIDERS: PCP Family Medicine; Visit Provider Nurse Practitioner Gerontology
DX: N28.9 Disorder of kidney and ureter, unspecified (principal); R33.8 Other retention of urine; R31.9 Hematuria, unspecified
CPT/HCPCS: 84520; 82565